=== PATIENT | female | born 1960 | race Two or more races ===

== ENCOUNTER 2016-08-10 20:30 | Emergency (ER) | payer BC ==
[~2016-08-10] VITALS: Ht 154.9 cm; Wt 66.0 kg
[2016-08-10] MEDS ORDERED: SODIUM CHLORIDE 0.9% 1,000 ML IV ONE (20:39)
[2016-08-10] MEDS ORDERED: OMEP-110 PO (20:46)
[2016-08-10] MEDS ORDERED: CITA20TA9 PO (20:46)
[2016-08-10] MEDS ORDERED: MAALOX/HYOSCYAMINE/LIDOCAINE 45 ML BOTTLE ONE (20:46)
[2016-08-10] MEDS ORDERED: MAALOX/HYOSCYAMINE/LIDOCAINE 45 ML BOTTLE PO ONE (21:00)
[2016-08-10] MEDS ORDERED: SODIUM CHLORIDE FLUSH 10ML SYR IVF ONE (21:00)
[2016-08-10 21:07] VITALS: BP 134/79
[2016-08-10 21:08] LABS: ASPARTATE AMINO TRANSFERASE 170 U/L (15-37); BLOOD UREA NITROGEN 15 mg/dL (7-18)
== END 2016-08-10 22:50 | disposition home or self-care (01) ==
LOC: ED 22:49
DX: K80.70 Calculus of gallbladder and bile duct without cholecystitis without obstruction (principal); K76.0 Fatty (change of) liver, not elsewhere classified; K21.9 Gastro-esophageal reflux disease without esophagitis
CPT/HCPCS: 36415; 76700; 80053; 83690; 85025; 96360; 99285; J7030

== ENCOUNTER 2016-09-14 05:59 | Day surgery (SDC) | payer BC ==
[~2016-09-14] VITALS: Ht 154.9 cm; Wt 64.0 kg
[~2016-09-14 05:59] MED LIST: CALC1TAB86 PO; CHOL2000 PO; CITA20TA9 PO; OMEP-110 PO; [UNRECOGNIZED DRUG - OTHER] PO
[2016-09-14] MEDS ORDERED: LACTATED RINGERS 1,000 ML IV SCH (06:27)
[2016-09-14 06:39] VITALS: BP 134/86
[2016-09-14] MEDS ORDERED: BUPIVACAINE/PF-EPI 0.5% 1:200K ONE (06:58)
[2016-09-14] MEDS ORDERED: MIDAZOLAM 1 MG/ML, 2ML ONE (07:09)
[2016-09-14] MEDS ORDERED: FENTANYL PF 250 MCG/5ML ONE (07:09)
[2016-09-14] MEDS ORDERED: LABETALOL 5MG/ML, 20ML ONE (07:21)
[2016-09-14] MEDS ORDERED: ONDANSETRON 2MG/ML, 2ML ONE (07:21)
[2016-09-14] MEDS ORDERED: ROCURONIUM 10 MG/ML ONE (07:21)
[2016-09-14] MEDS ORDERED: NEOSTIGMINE 1 MG/ML, 10ML ONE (07:21)
[2016-09-14] MEDS ORDERED: GLYCOPYRROLATE 0.2MG/1ML ONE (07:21)
[2016-09-14] MEDS ORDERED: PROPOFOL 10 MG/ML, 20ML ONE (07:21)
[2016-09-14] MEDS ORDERED: DEXAMETHASONE 4 MG/ML, 1ML ONE (07:21)
[2016-09-14] MEDS ORDERED: CEFAZOLIN 1,000 MG ONE (07:21)
[2016-09-14] MEDS ORDERED: PROMETHAZINE 25 MG/ML, 1ML IV PRN (07:30)
[2016-09-14] MEDS ORDERED: ACETAMINOPHEN 325 MG TABLET PO PRN (07:30)
[2016-09-14] MEDS ORDERED: OXYcodone 5 MG/5 ML ORAL.SOL UDC PO PRN (07:30)
[2016-09-14] MEDS ORDERED: FENTANYL PF 100 MCG/2ML IV PRN (07:30)
[2016-09-14] MEDS ORDERED: OXYcodone 5 MG/5 ML ORAL.SOL UDC ONE (09:22)
[2016-09-14] MEDS ORDERED: ACETAMINOPHEN 650 MG/20.3 ML UDC ONE (09:23)
[2016-09-14] MEDS ORDERED: ACETAMINOPHEN 325 MG/10.15 ML UDC ONE (09:23)
[2016-09-14] MEDS ORDERED: KETOROLAC 30 MG/1 ML ONE (10:55)
[2016-09-14] MEDS ORDERED: DIPHENHYDRAMINE 50 MG/ML, 1ML IVPush PRN (11:00)
[2016-09-14] MEDS ORDERED: HYDROmorphone 2 MG/ML, 1ML IVPush PRN (11:00)
[2016-09-14] MEDS ORDERED: ONDANSETRON 2MG/ML, 2ML IVPush PRN (11:00)
[2016-09-14] MEDS ORDERED: KETOROLAC 30 MG/1 ML IVPush PRN (11:00)
[2016-09-14] MEDS ORDERED: HYDROcodone/APAP 5/325 TABLET PO PRN (11:00)
[2016-09-14] MEDS ORDERED: ENOXAPARIN 40 MG/0.4 ML ONE (11:56)
[2016-09-14] MEDS ORDERED: ENOXAPARIN 40 MG/0.4 ML SQ SCH (12:00)
== END 2016-09-14 13:05 ==
LOC: OUT 05:59
PROVIDERS: ATTEND Surgery
DX: K80.10 Calculus of gallbladder with chronic cholecystitis without obstruction (principal); K66.0 Peritoneal adhesions (postprocedural) (postinfection); F32.9 Major depressive disorder, single episode, unspecified; Z87.440 Personal history of urinary (tract) infections; Z87.39 Personal history of other diseases of the musculoskeletal system and connective tissue; Z79.899 Other long term (current) drug therapy; Z98.890 Other specified postprocedural states; Z82.62 Family history of osteoporosis; Z83.49 Family history of other endocrine, nutritional and metabolic diseases
CPT/HCPCS: 47563; 74300; 76001; 88304; J0690; J1100; J1650; J1885; J2250; J2405; J2704; J2710; J3010; J3490